=== PATIENT | male | born 1960 | race African-American/Black ===

== ENCOUNTER 2017-11-24 08:21 | Emergency (ER) | payer MEDICAID ==
[~2017-11-24] VITALS: Ht 180.3 cm; Wt 94.0 kg
[2017-11-24 08:24] VITALS: BP 122/86
== END 2017-11-24 09:13 | disposition home or self-care (01) ==
LOC: ER 09:07
DX: J32.9 Chronic sinusitis, unspecified (principal); I10 Essential (primary) hypertension; J45.909 Unspecified asthma, uncomplicated; Z98.1 Arthrodesis status
CPT/HCPCS: 99283; Z7610

== ENCOUNTER 2017-12-15 08:35 | Emergency (ER) | payer MEDICAID ==
[~2017-12-15] VITALS: Ht 180.3 cm; Wt 93.0 kg
[2017-12-15] MEDS ORDERED: SODIUM CHLORIDE 0.9% 1,000 ML IV ONE (10:00)
[2017-12-15] MEDS ORDERED: KETOROLAC 15MG/ML VIAL IV ONE (10:00)
[2017-12-15 10:17] LABS: BASOPHILS % 0.8 % (0.0-2.0); EOSINOPHILS % 0.8 % (0.0-5.0); HEMATOCRIT. 43.3 % (42.0-52.0); LYMPHOCYTES % 14.8 % (20.0-50.0); MEAN CORPUSCULAR HEMOGLOBIN 31.2 pg (28.0-32.0); MEAN CORPUSCULAR VOLUME 90.1 fL (80.0-94.0); MEAN PLATELET VOLUME 8.6 fl (7.4-10.4); MONOCYTES % 6.7 % (2.0-8.0); NEUTROPHILS % 76.9 % (40.0-76.0); PLATELET 258 x1000/uL (130-400); RED BLOOD CELL COUNT 4.81 mill/uL (4.7-6.1); RED CELL DISTRIBUTION WIDTH 13.2 % (11.6-14.6)
[2017-12-15 10:24] LABS: CHLORIDE 100 mEq/L (98-107)
[2017-12-15 10:25] LABS: PROTHROMBIN TIME 10.6 sec (9.4-11.6)
[2017-12-15 13:08] LABS: CLARITY URINE CLEAR (CLEAR); COLOR URINE YELLOW (YELLOW); KETONES URINE NEGATIVE (NEGATIVE); LEUKOCYTE ESTERASE URINE TRACE (NEGATIVE); NITRITE URINE NEGATIVE (NEGATIVE); OCCULT BLOOD URINE NEGATIVE (NEGATIVE); PH URINE 6.5 (4.5-8.0); PROTEIN URINE NEGATIVE (NEGATIVE); SPECIFIC GRAVITY URINE 1.011 (1.005-1.030)
[2017-12-15 13:23] VITALS: BP 98/62
== END 2017-12-15 13:27 | disposition home or self-care (01) ==
LOC: ER 09:00
DX: M62.838 Other muscle spasm (principal); I10 Essential (primary) hypertension; J45.909 Unspecified asthma, uncomplicated
CPT/HCPCS: 36415; 80053; 81003; 82550; 83735; 85025; 85610; 96361; 96374; 99284; J1885; J7030; Z7610

== ENCOUNTER 2018-02-03 07:29 | Emergency (ER) | payer MEDICAID ==
[~2018-02-03] VITALS: Ht 180.3 cm; Wt 92.0 kg
[2018-02-03 07:52] LABS: CLARITY URINE CLEAR (CLEAR); COLOR URINE YELLOW (YELLOW); KETONES URINE NEGATIVE (NEGATIVE); LEUKOCYTE ESTERASE URINE 2+ (NEGATIVE); NITRITE URINE NEGATIVE (NEGATIVE); OCCULT BLOOD URINE TRACE (NEGATIVE); PH URINE 8.5 (4.5-8.0); PROTEIN URINE NEGATIVE (NEGATIVE); SPECIFIC GRAVITY URINE 1.009 (1.005-1.030)
[2018-02-03 10:47] VITALS: BP 117/77
== END 2018-02-03 10:48 | disposition home or self-care (01) ==
LOC: ER 07:29
DX: N39.0 Urinary tract infection, site not specified (principal); J45.909 Unspecified asthma, uncomplicated; I10 Essential (primary) hypertension
CPT/HCPCS: 81003; 87077; 87086; 87186; 99284

== ENCOUNTER 2019-02-10 05:42 | Emergency (ER) | payer MEDICAID ==
[~2019-02-10] VITALS: Ht 180.3 cm; Wt 91.0 kg
[~2019-02-10 05:42] MED LIST: BENAZEPRIL PO
[2019-02-10] MEDS ORDERED: SODIUM CHLORIDE 0.9% 1,000 ML IV ONE (06:18)
[2019-02-10] MEDS ORDERED: KETOROLAC 30MG/ML VIAL IV ONE (06:30)
[2019-02-10] MEDS ORDERED: METOCLOPRAMIDE HCL 10MG/2ML VIAL IV ONE (06:30)
[2019-02-10 08:50] VITALS: BP 120/77
== END 2019-02-10 08:53 | disposition home or self-care (01) ==
LOC: ER 06:08
DX: R51 Headache (principal); J45.909 Unspecified asthma, uncomplicated; I10 Essential (primary) hypertension; Z98.890 Other specified postprocedural states
CPT/HCPCS: 96361; 96374; 96375; 99283; J1885; J2765; J7030

== ENCOUNTER 2019-04-05 07:05 | Emergency (ER) | payer OTHER ==
[~2019-04-05] VITALS: Ht 180.3 cm; Wt 91.0 kg
[2019-04-05] MEDS ORDERED: ACETAMINOPHEN 500MG TABLET PO ONE (07:30)
[2019-04-05] MEDS ORDERED: KETOROLAC 60MG/2ML VIAL IM ONE (07:30)
[2019-04-05 07:42] VITALS: BP 131/80
== END 2019-04-05 07:43 | disposition home or self-care (01) ==
LOC: ER 07:05
DX: G89.29 Other chronic pain (principal); M54.5 Low back pain; I10 Essential (primary) hypertension; J45.909 Unspecified asthma, uncomplicated; Z98.1 Arthrodesis status; Z87.828 Personal history of other (healed) physical injury and trauma
CPT/HCPCS: 96372; 99283; J1885

== ENCOUNTER 2020-02-28 11:22 | Emergency (ER) | payer MEDICAID, OTHER ==
[~2020-02-28] VITALS: Ht 180.3 cm; Wt 100.0 kg
[2020-02-28 11:30] VITALS: BP 113/78
== END 2020-02-28 13:00 | disposition home or self-care (01) ==
LOC: ER 11:22
DX: U07.1 COVID-19 (principal); B34.9 Viral infection, unspecified; I10 Essential (primary) hypertension; J45.909 Unspecified asthma, uncomplicated; Z98.1 Arthrodesis status
CPT/HCPCS: 87635; 99283

== ENCOUNTER 2020-03-10 12:21 | Emergency (ER) | payer MEDICAID ==
[~2020-03-10] VITALS: Ht 182.9 cm; Wt 90.0 kg
[2020-03-10] MEDS ORDERED: ONDANSETRON HCL 4MG/2ML INJ IV STA (12:44)
[2020-03-10] MEDS ORDERED: SODIUM CHLORIDE 0.9% 1,000 ML IV ONE (12:44)
[2020-03-10 13:04] LABS: BASOPHILS % 0.5 % (0.0-2.0); EOSINOPHILS % 0.1 % (0.0-5.0); HEMATOCRIT. 40.7 % (42.0-52.0); HEMOGLOBIN. 14.1 g/dL (14.0-18.0); LYMPHOCYTES % 9.3 % (20.0-50.0); MEAN CORPUSCULAR HEMOGLOBIN 30.7 pg (28.0-32.0); MEAN CORPUSCULAR VOLUME 88.1 fL (80.0-94.0); MEAN PLATELET VOLUME 8.7 fl (7.4-10.4); MONOCYTES % 7.3 % (2.0-8.0); NEUTROPHILS % 82.8 % (40.0-76.0); PLATELET 335 x1000/uL (130-400); RED BLOOD CELL COUNT 4.61 mill/uL (4.7-6.1); RED CELL DISTRIBUTION WIDTH 12.3 % (11.6-14.6)
[2020-03-10 13:11] LABS: CHLORIDE 103 mEq/L (98-107)
[2020-03-10 13:16] LABS: CLARITY URINE CLEAR (CLEAR); COLOR URINE YELLOW (YELLOW); KETONES URINE NEGATIVE (NEGATIVE); LEUKOCYTE ESTERASE URINE 2+ (NEGATIVE); NITRITE URINE NEGATIVE (NEGATIVE); OCCULT BLOOD URINE TRACE (NEGATIVE); PROTEIN URINE NEGATIVE (NEGATIVE); SPECIFIC GRAVITY URINE 1.015 (1.005-1.030)
[2020-03-10] MEDS ORDERED: POTASSIUM CHLORIDE 20MEQ TABLET SR PO ONE (13:30)
[2020-03-10] MEDS ORDERED: CEFTRIAXONE 1 G PREMIX 50 ML IV ONE (14:00)
[2020-03-10] MEDS ORDERED: AZITHROMYCIN 500 MG in DEXT 5% WATER 250 ML IV ONE (14:30)
[2020-03-10 22:16] VITALS: BP 109/64
== END 2020-03-10 22:40 | disposition short-term general hospital (02) ==
LOC: ER 12:21 → CANBEDREQ 22:46
DX: D72.829 Elevated white blood cell count, unspecified (principal); N39.0 Urinary tract infection, site not specified; J18.9 Pneumonia, unspecified organism; E87.6 Hypokalemia; J45.909 Unspecified asthma, uncomplicated; I10 Essential (primary) hypertension
CPT/HCPCS: 36415; 71045; 80053; 81003; 83605; 83690; 83880; 84484; 85025; 87040; 87077; 87086; 87186; 87635; 93005; 96361; 96365; 96367; 96375; 99285; J0456; J0696; J2405; J7030; J7060